=== PATIENT | female | born 1995 | race Caucasian/White ===

== ENCOUNTER 2022-07-09 03:07 | Emergency (ER) | payer BC ==
[~2022-07-09] VITALS: Ht 165.1 cm; Wt 54.4 kg
[2022-07-09] MEDS ORDERED: MELOXICAM15 MG PO (05:58)
[2022-07-09] MEDS ORDERED: HYDROCODON-ACE1 EA10 PO (05:58)
== END 2022-07-09 06:21 | disposition home or self-care (01) ==
LOC: ED 03:07
DX: N83.201 Unspecified ovarian cyst, right side (principal); Z20.822 Contact with and (suspected) exposure to COVID-19; Z91.040 Latex allergy status
CPT/HCPCS: 36415; 74177; 80053; 81001; 83690; 84703; 85025; 87502; 96375; 96376; 99284-25; A9270; C9803; J2270; J2405; J7030; Q9967; U0003